=== PATIENT | male | born 1940 | race African-American/Black ===

== ENCOUNTER 2022-12-02 09:45 | Inpatient (IN) | payer MEDICARE, MEDICAID ==
[~2022-12-02] VITALS: Ht 180.3 cm; Wt 89.8 kg
[2022-12-02 10:18] LABS: BASOPHILS % 0.2 % (0.0-2.0); HEMATOCRIT. 44.7 % (42.0-52.0); HEMOGLOBIN. 15.3 g/dL (14.0-18.0); LYMPHOCYTES % 7.5 % (20.0-50.0); MEAN CORPUSCULAR VOLUME 93.6 fL (80.0-94.0); MEAN PLATELET VOLUME 7.5 fl (7.4-10.4); MONOCYTES % 8.6 % (2.0-8.0); NEUTROPHILS % 83.7 % (40.0-76.0); PLATELET 508 x1000/uL (130-400); RED BLOOD CELL COUNT 4.77 mill/uL (4.7-6.1); RED CELL DISTRIBUTION WIDTH 13.2 % (11.6-14.6)
[2022-12-02 10:26] LABS: CHLORIDE 99 mEq/L (98-107)
[2022-12-02 10:34] LABS: ETHANOL BLOOD < 10 mg/dL
[2022-12-02 13:14] LABS: CLARITY URINE CLEAR (CLEAR); COLOR URINE YELLOW (YELLOW); KETONES URINE NEGATIVE (NEGATIVE); LEUKOCYTE ESTERASE URINE 2+ (NEGATIVE); NITRITE URINE NEGATIVE (NEGATIVE); OCCULT BLOOD URINE TRACE (NEGATIVE); PH URINE 5.5 (4.5-8.0); PROTEIN URINE NEGATIVE (NEGATIVE); SPECIFIC GRAVITY URINE 1.015 (1.005-1.030)
[2022-12-02] MEDS ORDERED: LEVOFLOXACIN 750MG PREMIX 150 ML IV ONE (13:30)
[2022-12-02 14:12] LABS: *AMPHETAMINES SCREEN URINE NEGATIVE (NEGATIVE); *BARBITURATES SCREEN URINE NEGATIVE (NEGATIVE); *BENZODIAZEPINES SCREEN URINE NEGATIVE (NEGATIVE); *COCAINE SCREEN URINE NEGATIVE (NEGATIVE); CANNABINOID URINE SCREEN NEGATIVE (NEGATIVE); METHADONE URINE SCREEN NEGATIVE (NEGATIVE); OPIATES URINE SCREEN NEGATIVE (NEGATIVE); PHENCYCLIDINE URINE SCREEN NEGATIVE (NEGATIVE)
[2022-12-02 17:00] VITALS: BP 103/56
[2022-12-02 17:26] VITALS: BP 103/56
[2022-12-02 20:00] VITALS: BP 109/55
[2022-12-02] MEDS ORDERED: POTASSIUM CHLORIDE 20MEQ TABLET SR PO NR (20:30)
[2022-12-02] MEDS ORDERED: ACETAMINOPHEN 650MG/20.3ML UDC PO PRN (20:30)
[2022-12-02] MEDS: PIPERACILLIN/TAZOBACTAM 3.375 G in DEXTROSE 5% WATER 50 ML IV SCH (22:02)
[2022-12-02] MEDS: HEPARIN 5000 UNITS/ML VIAL SUBCUT SCH (22:07)
[2022-12-02] MEDS: SODIUM CHLORIDE 0.45% 1,000 ML IV SCH (22:08)
[2022-12-03] VITALS: BP 104/59
[2022-12-03 04:00] VITALS: BP 95/51
[2022-12-03] MEDS: PIPERACILLIN/TAZOBACTAM 3.375 G in DEXTROSE 5% WATER 50 ML IV SCH ×3 (05:59→21:48)
[2022-12-03 06:41] LABS: HEMATOCRIT. 40.4 % (42.0-52.0); MEAN CORPUSCULAR HEMOGLOBIN 32.4 pg (28.0-32.0); MEAN CORPUSCULAR VOLUME 93.2 fL (80.0-94.0); MEAN PLATELET VOLUME 7.9 fl (7.4-10.4); PLATELET 484 x1000/uL (130-400); RED BLOOD CELL COUNT 4.33 mill/uL (4.7-6.1); RED CELL DISTRIBUTION WIDTH 12.8 % (11.6-14.6)
[2022-12-03 07:03] LABS: CHLORIDE 100 mEq/L (98-107)
[2022-12-03 07:43] VITALS: BP 107/61
[2022-12-03] MEDS: HEPARIN 5000 UNITS/ML VIAL SUBCUT SCH ×2 (08:55→21:50)
[2022-12-03 11:05] VITALS: BP 122/55
[2022-12-03] MEDS ORDERED: ONDANSETRON HCL 4MG/2ML INJ IV PRN (12:30)
[2022-12-03] MEDS ORDERED: IPRATROPIUM/ALBUTEROL 0.5-3(2.5)MG/3ML NEB HHN PRN (12:30)
[2022-12-03] MEDS ORDERED: CLONIDINE 0.1MG TABLET PO PRN (12:30)
[2022-12-03] MEDS ORDERED: POTASSIUM CHLORIDE 20MEQ TABLET SR PO NR (13:45)
[2022-12-03 15:33] VITALS: BP 98/51
[2022-12-03] MEDS: METOPROLOL SUCCINATE 50MG ER TABLET PO SCH (16:45)
[2022-12-03 17:48] LABS: PLATELET ESTIMATE INCREASED
[2022-12-03 20:00] VITALS: BP 100/40
[2022-12-03] MEDS: SODIUM CHLORIDE 0.45% 1,000 ML IV SCH (21:50)
[2022-12-04] VITALS (7 sets, daily range): BP systolic 95–117; BP diastolic 47–61
[2022-12-04] MEDS: PIPERACILLIN/TAZOBACTAM 3.375 G in DEXTROSE 5% WATER 50 ML IV SCH ×2 (06:02→14:16)
[2022-12-04] MEDS: SODIUM CHLORIDE 0.45% 1,000 ML IV SCH ×3 (06:03→19:00)
[2022-12-04 07:16] LABS: HEMATOCRIT. 43.8 % (42.0-52.0); HEMOGLOBIN. 14.8 g/dL (14.0-18.0); LYMPHOCYTES % 9.2 % (20.0-50.0); MEAN CORPUSCULAR HEMOGLOBIN 32.3 pg (28.0-32.0); MEAN CORPUSCULAR VOLUME 95.8 fL (80.0-94.0); MEAN PLATELET VOLUME 7.5 fl (7.4-10.4); MONOCYTES % 7.9 % (2.0-8.0); NEUTROPHILS % 82.9 % (40.0-76.0); PLATELET 413 x1000/uL (130-400); RED BLOOD CELL COUNT 4.57 mill/uL (4.7-6.1); RED CELL DISTRIBUTION WIDTH 13.4 % (11.6-14.6)
[2022-12-04 07:42] LABS: PHOSPHORUS 3.2 mg/dL (2.5-4.9)
[2022-12-04] MEDS ORDERED: POTASSIUM CHLORIDE 20MEQ TABLET SR PO NR (09:30)
[2022-12-04] MEDS: METOPROLOL SUCCINATE 50MG ER TABLET PO SCH (09:48)
[2022-12-04] MEDS: HEPARIN 5000 UNITS/ML VIAL SUBCUT SCH (09:49)
[2022-12-04] MEDS ORDERED: POTASSIUM CHLORIDE 20MEQ TABLET SR PO ONE (10:15)
[2022-12-04] MEDS ORDERED: SODIUM CHLORIDE 0.9% 500 ML IV ONE (17:00)
[2022-12-04] MEDS ORDERED: RIVAROXABAN 10 MG TABLET PO SCH (17:00)
[2022-12-04] MEDS ORDERED: APIXABAN 2.5 MG TABLET PO SCH (17:00)
[2022-12-04 19:30] LABS: CHLORIDE 108 mEq/L (98-107)
[2022-12-04] MEDS: LINEZOLID 600 MG PREMIX 300 ML IV SCH (22:00)
[2022-12-05] VITALS: BP 100/55
[2022-12-05] MEDS: SODIUM CHLORIDE 0.45% 1,000 ML IV SCH ×3 (03:00→20:11)
[2022-12-05 04:00] VITALS: BP 103/52
[2022-12-05 07:15] LABS: BASOPHILS % 0.1 % (0.0-2.0); EOSINOPHILS % 0.1 % (0.0-5.0); HEMATOCRIT. 41.9 % (42.0-52.0); HEMOGLOBIN. 14.2 g/dL (14.0-18.0); LYMPHOCYTES % 7.7 % (20.0-50.0); MEAN CORPUSCULAR HEMOGLOBIN 32.1 pg (28.0-32.0); MEAN CORPUSCULAR VOLUME 94.6 fL (80.0-94.0); NEUTROPHILS % 85.1 % (40.0-76.0); PLATELET 383 x1000/uL (130-400); RED BLOOD CELL COUNT 4.42 mill/uL (4.7-6.1); RED CELL DISTRIBUTION WIDTH 13.3 % (11.6-14.6)
[2022-12-05 07:44] LABS: PHOSPHORUS 3.2 mg/dL (2.5-4.9)
[2022-12-05 08:00] VITALS: BP 126/62
[2022-12-05] MEDS ORDERED: PIPERACILLIN/TAZOBACTAM 3.375 G in DEXTROSE 5% WATER 50 ML IV SCH (09:00)
[2022-12-05] MEDS: LINEZOLID 600 MG PREMIX 300 ML IV SCH (09:36)
[2022-12-05] MEDS: METOPROLOL SUCCINATE 50MG ER TABLET PO SCH (09:39)
[2022-12-05] MEDS ORDERED: POTASSIUM CHLORIDE 20MEQ TABLET SR PO NR (11:15)
[2022-12-05 12:13] VITALS: BP 121/73
[2022-12-05 16:00] VITALS: BP 106/47
[2022-12-05] MEDS: CEFTRIAXONE 2 G in DEXTROSE 5% WATER 50 ML IV SCH (18:40)
[2022-12-05 20:00] VITALS: BP 107/53
[2022-12-06] VITALS: BP 121/60
[2022-12-06] MEDS: SODIUM CHLORIDE 0.45% 1,000 ML IV SCH ×3 (03:35→21:21)
[2022-12-06 04:00] VITALS: BP 117/55
[2022-12-06 07:48] LABS: HEMATOCRIT. 39.7 % (42.0-52.0); HEMOGLOBIN. 13.5 g/dL (14.0-18.0); MEAN CORPUSCULAR HEMOGLOBIN 32.3 pg (28.0-32.0); MEAN CORPUSCULAR VOLUME 95.2 fL (80.0-94.0); MEAN PLATELET VOLUME 8.1 fl (7.4-10.4); PLATELET 284 x1000/uL (130-400); RED BLOOD CELL COUNT 4.17 mill/uL (4.7-6.1); RED CELL DISTRIBUTION WIDTH 13.4 % (11.6-14.6)
[2022-12-06 08:00] VITALS: BP 117/49
[2022-12-06 08:00] LABS: PHOSPHORUS 2.5 mg/dL (2.5-4.9)
[2022-12-06] MEDS: METOPROLOL SUCCINATE 50MG ER TABLET PO SCH (09:00)
[2022-12-06] MEDS ORDERED: POTASSIUM CHLORIDE 20MEQ TABLET SR PO NR (09:15)
[2022-12-06 12:00] VITALS: BP 109/45
[2022-12-06 13:57] LABS: PLATELET ESTIMATE NORMAL
[2022-12-06] MEDS ORDERED: BUPIVACAINE HCL/PF 0.5% (5MG/ML) 10ML ONE (15:27)
[2022-12-06] MEDS ORDERED: LIDOCAINE HCL 1% 10 MG/ML 10ML VIAL ONE ×2 (15:27→17:20)
[2022-12-06 16:00] VITALS: BP 123/63
[2022-12-06] MEDS: CEFTRIAXONE 2 G in DEXTROSE 5% WATER 50 ML IV SCH (17:10)
[2022-12-06] MEDS ORDERED: FENTANYL CITRATE/PF 50MCG/ML 2ML VIAL ONE (17:19)
[2022-12-06] MEDS ORDERED: PROPOFOL 200MG/20ML VIAL IV ONE (17:20)
[2022-12-06] MEDS ORDERED: CEFAZOLIN SODIUM 1000MG/VIAL ONE (17:38)
[2022-12-06] MEDS ORDERED: EPHEDRINE SULFATE 50MG/ML VIAL ONE (17:51)
[2022-12-07] VITALS: BP 118/51
[2022-12-07] MEDS: SODIUM CHLORIDE 0.45% 1,000 ML IV SCH ×3 (01:07→17:28)
[2022-12-07 04:13] VITALS: BP 133/52
[2022-12-07 07:27] LABS: BASOPHILS % 0.1 % (0.0-2.0); EOSINOPHILS % 0.4 % (0.0-5.0); HEMATOCRIT. 36.6 % (42.0-52.0); HEMOGLOBIN. 12.3 g/dL (14.0-18.0); LYMPHOCYTES % 8.2 % (20.0-50.0); MEAN CORPUSCULAR HEMOGLOBIN 32.2 pg (28.0-32.0); MEAN CORPUSCULAR VOLUME 95.5 fL (80.0-94.0); MEAN PLATELET VOLUME 8.6 fl (7.4-10.4); MONOCYTES % 6.9 % (2.0-8.0); NEUTROPHILS % 84.4 % (40.0-76.0); PLATELET 219 x1000/uL (130-400); RED BLOOD CELL COUNT 3.83 mill/uL (4.7-6.1); RED CELL DISTRIBUTION WIDTH 13.5 % (11.6-14.6)
[2022-12-07 07:57] LABS: PHOSPHORUS 2.3 mg/dL (2.5-4.9)
[2022-12-07 08:00] VITALS: BP 119/57
[2022-12-07] MEDS: METOPROLOL SUCCINATE 50MG ER TABLET PO SCH (09:20)
[2022-12-07 12:00] VITALS: BP 120/60
[2022-12-07 16:00] VITALS: BP 104/46
[2022-12-07] MEDS ORDERED: POTASSIUM PHOS,M-BASIC-D-BASIC 15 MMOL in DEXT 5% WATER 245 ML IV NR (17:00)
[2022-12-07] MEDS: CEFTRIAXONE 2 G in DEXTROSE 5% WATER 50 ML IV SCH (17:28)
[2022-12-07 20:12] VITALS: BP 103/51
[2022-12-08 00:17] VITALS: BP 112/60
[2022-12-08 04:52] VITALS: BP 131/61
[2022-12-08] MEDS: SODIUM CHLORIDE 0.45% 1,000 ML IV SCH ×3 (05:01→21:33)
[2022-12-08 06:58] LABS: BASOPHILS % 0.3 % (0.0-2.0); EOSINOPHILS % 1.4 % (0.0-5.0); HEMATOCRIT. 34.3 % (42.0-52.0); HEMOGLOBIN. 11.9 g/dL (14.0-18.0); LYMPHOCYTES % 11.2 % (20.0-50.0); MEAN CORPUSCULAR HEMOGLOBIN 32.8 pg (28.0-32.0); MEAN CORPUSCULAR VOLUME 94.5 fL (80.0-94.0); MEAN PLATELET VOLUME 8.8 fl (7.4-10.4); NEUTROPHILS % 79.1 % (40.0-76.0); PLATELET 199 x1000/uL (130-400); RED BLOOD CELL COUNT 3.63 mill/uL (4.7-6.1)
[2022-12-08 06:59] LABS: PARTIAL THROMBOPLASTIN TIME 29.2 sec (23.4-31.0); PROTHROMBIN TIME 11.2 sec (9.6-11.0)
[2022-12-08 07:22] LABS: CHLORIDE 104 mEq/L (98-107)
[2022-12-08 07:34] LABS: PHOSPHORUS 1.8 mg/dL (2.5-4.9)
[2022-12-08 08:00] VITALS: BP 116/49
[2022-12-08] MEDS: METOPROLOL SUCCINATE 50MG ER TABLET PO SCH (08:18)
[2022-12-08 12:00] VITALS: BP 109/50
[2022-12-08] MEDS: SULFAMETHOXAZOLE/TRIMETHOPRIM 800/160MG TABLET PO SCH ×2 (13:20→21:32)
[2022-12-08] MEDS: POTASSIUM-SODIUM PHOSPHATE POWDER PACKET PO SCH ×2 (14:19→21:32)
[2022-12-08 16:00] VITALS: BP 110/53
[2022-12-08] MEDS: CEFTRIAXONE 2 G in DEXTROSE 5% WATER 50 ML IV SCH (17:19)
[2022-12-08 20:00] VITALS: BP 120/62
[2022-12-09] VITALS: BP 121/60
[2022-12-09 04:00] VITALS: BP 127/61
[2022-12-09 05:09] LABS: BASOPHILS % 0.3 % (0.0-2.0); EOSINOPHILS % 1.8 % (0.0-5.0); HEMATOCRIT. 35.2 % (42.0-52.0); HEMOGLOBIN. 12.2 g/dL (14.0-18.0); LYMPHOCYTES % 10.9 % (20.0-50.0); MEAN CORPUSCULAR HEMOGLOBIN 32.3 pg (28.0-32.0); MEAN CORPUSCULAR VOLUME 93.1 fL (80.0-94.0); MEAN PLATELET VOLUME 8.9 fl (7.4-10.4); MONOCYTES % 8.2 % (2.0-8.0); NEUTROPHILS % 78.8 % (40.0-76.0); PLATELET 201 x1000/uL (130-400); RED BLOOD CELL COUNT 3.78 mill/uL (4.7-6.1)
[2022-12-09 08:00] VITALS: BP 116/59
[2022-12-09] MEDS: POTASSIUM-SODIUM PHOSPHATE POWDER PACKET PO SCH ×2 (08:23→18:00)
[2022-12-09] MEDS: SULFAMETHOXAZOLE/TRIMETHOPRIM 800/160MG TABLET PO SCH ×2 (08:24→20:30)
[2022-12-09] MEDS: METOPROLOL SUCCINATE 50MG ER TABLET PO SCH (08:27)
[2022-12-09 16:00] VITALS: BP 106/51
[2022-12-09] MEDS: CEFTRIAXONE 2 G in DEXTROSE 5% WATER 50 ML IV SCH (18:00)
[2022-12-09 20:00] VITALS: BP 130/60
[2022-12-10] VITALS (7 sets, daily range): BP systolic 106–143; BP diastolic 46–71
[2022-12-10 07:29] LABS: BASOPHILS % 0.4 % (0.0-2.0); EOSINOPHILS % 1.8 % (0.0-5.0); HEMATOCRIT. 36.5 % (42.0-52.0); HEMOGLOBIN. 12.6 g/dL (14.0-18.0); LYMPHOCYTES % 9.8 % (20.0-50.0); MEAN CORPUSCULAR HEMOGLOBIN 32.5 pg (28.0-32.0); MEAN CORPUSCULAR VOLUME 94.3 fL (80.0-94.0); MEAN PLATELET VOLUME 9.1 fl (7.4-10.4); MONOCYTES % 6.9 % (2.0-8.0); NEUTROPHILS % 81.1 % (40.0-76.0); PLATELET 209 x1000/uL (130-400); RED BLOOD CELL COUNT 3.87 mill/uL (4.7-6.1); RED CELL DISTRIBUTION WIDTH 13.1 % (11.6-14.6)
[2022-12-10 09:25] LABS: PHOSPHORUS 2.3 mg/dL (2.5-4.9)
[2022-12-10] MEDS: METOPROLOL SUCCINATE 50MG ER TABLET PO SCH (09:52)
[2022-12-10] MEDS: SULFAMETHOXAZOLE/TRIMETHOPRIM 800/160MG TABLET PO SCH ×2 (09:52→20:14)
[2022-12-10] MEDS: POTASSIUM-SODIUM PHOSPHATE POWDER PACKET PO SCH ×2 (09:52→17:05)
[2022-12-10] MEDS: CEFTRIAXONE 2 G in DEXTROSE 5% WATER 50 ML IV SCH (17:04)
[2022-12-11] VITALS: BP 120/62
[2022-12-11 04:00] VITALS: BP 123/64
[2022-12-11 08:00] VITALS: BP 108/51
[2022-12-11] MEDS: POTASSIUM-SODIUM PHOSPHATE POWDER PACKET PO SCH (09:25)
[2022-12-11] MEDS: SULFAMETHOXAZOLE/TRIMETHOPRIM 800/160MG TABLET PO SCH (09:25)
[2022-12-11] MEDS: METOPROLOL SUCCINATE 50MG ER TABLET PO SCH (09:26)
== END 2022-12-11 13:35 | DRG 853 ==
LOC: ER 09:45 → 7WST 13:36 → EDBEDREQTM 13:38 → EDBEDREQ 13:38 → 7WST 17:06 → UNDODISIN 12-07 15:00
PROVIDERS: ADMIT Internal Medicine; ATTEND Internal Medicine
PROC: 0JBC0ZZ Excision of Pelvic Region Subcutaneous Tissue and Fascia, Open Approach (ICD-10-PCS; principal; 2022-12-06)
PROC: 0J9C0ZZ Drainage of Pelvic Region Subcutaneous Tissue and Fascia, Open Approach (ICD-10-PCS; 2022-12-06)
PROC: 05HY33Z Insertion of Infusion Device into Upper Vein, Percutaneous Approach (ICD-10-PCS; 2022-12-08)
PROC: B54MZZA Ultrasonography of Right Upper Extremity Veins, Guidance (ICD-10-PCS; 2022-12-08)
DX: A41.01 Sepsis due to Methicillin susceptible Staphylococcus aureus (principal); E43 Unspecified severe protein-calorie malnutrition; G92.8 Other toxic encephalopathy; N39.0 Urinary tract infection, site not specified; I48.92 Unspecified atrial flutter; L02.214 Cutaneous abscess of groin; N17.9 Acute kidney failure, unspecified; N18.4 Chronic kidney disease, stage 4 (severe); B96.89 Other specified bacterial agents as the cause of diseases classified elsewhere; E11.22 Type 2 diabetes mellitus with diabetic chronic kidney disease; D63.1 Anemia in chronic kidney disease; E11.65 Type 2 diabetes mellitus with hyperglycemia; I12.9 Hypertensive chronic kidney disease with stage 1 through stage 4 chronic kidney disease, or unspecified chronic kidney disease; M10.9 Gout, unspecified; R19.09 Other intra-abdominal and pelvic swelling, mass and lump; S30.1XXA Contusion of abdominal wall, initial encounter; E78.5 Hyperlipidemia, unspecified; I45.9 Conduction disorder, unspecified; E87.6 Hypokalemia; Z68.27 Body mass index [BMI] 27.0-27.9, adult; Z79.01 Long term (current) use of anticoagulants; Z82.49 Family history of ischemic heart disease and other diseases of the circulatory system; X58.XXXA Exposure to other specified factors, initial encounter; Y93.89 Activity, other specified; Y92.89 Other specified places as the place of occurrence of the external cause; Y99.8 Other external cause status
CPT/HCPCS: 36415; 36573; 70551; 71045; 74176; 76700; 76857; 80048; 80053; 80305; 80320; 81003; 82550; 82962; 83735; 83880; 84100; 84145; 84484; 85025; 87070; 87075; 87077; 87186; 87426; 88304; 93005; 93306; 97162; 99285; C1725; J0690; J0696; J1644; J1956; J2020; J2543; J2704; J3010; J3490; J7060; G0480